=== PATIENT | female | born 1975 | race Caucasian/White ===

== ENCOUNTER 2017-08-08 16:23 | Inpatient (IN) | payer OTHER, MEDICAID ==
[~2017-08-08] VITALS: Ht 170.2 cm; Wt 100.1 kg
[2017-08-28] VITALS (12 sets, daily range): BP systolic 98–229; BP diastolic 53–87; PULSE 64–88; TEMP 94–98
[2017-08-28] MEDS ORDERED: LOPRESSOR 550 MG/TAB PO (06:10)
[2017-08-28] MEDS ORDERED: ATIVAN 1MG T1 MG/TAB PO (06:11)
[2017-08-28] MEDS ORDERED: OYSTER SHELL C500 MG PO (06:12)
[2017-08-28] MEDS ORDERED: VITAMIN C500 MG PO (06:52)
[2017-08-28] MEDS ORDERED: FOLIC ACID800 MCG PO (06:52)
[2017-08-28] MEDS ORDERED: FERROUS SU325 MG/TAB PO (06:53)
[2017-08-28] MEDS ORDERED: SYNTHROID0.05 MG/TA PO (06:54)
[2017-08-29] VITALS (7 sets, daily range): BP systolic 113–125; BP diastolic 67–82; PULSE 64–90; TEMP 97.4–98.5
[2017-08-29 06:45] LABS: HEMOGLOBIN 12.1 g/dl (12.5-16.0)
[2017-08-29 06:59] LABS: HEMATOCRIT 35.8 % (37.0-47.0)
[2017-08-30 00:37] VITALS: BP 108/68; PULSE 76; TEMP 98.8
[2017-08-30 03:36] VITALS: BP 116/78; PULSE 80; TEMP 98.1
[2017-08-30 06:31] LABS: HEMOGLOBIN 11.9 g/dl (12.5-16.0)
[2017-08-30 07:42] VITALS: BP 108/77; PULSE 83; TEMP 97.6
[2017-08-30 11:54] VITALS: BP 115/72; PULSE 80; TEMP 98
[2017-08-30] MEDS ORDERED: ASPI325T6 PO (15:07)
[2017-08-30 15:45] VITALS: BP 122/79; PULSE 91; TEMP 97.8
== END 2017-08-30 16:20 | disposition home or self-care (01) | DRG 468 ==
LOC: JCC 08-28 06:12 → EDBD 08-28 07:30 → JCC 08-28 07:30
PROVIDERS: Orthopaedic Surgery Sports Medicine
PROC: 0SPW0JZ Removal of Synthetic Substitute from Left Knee Joint, Tibial Surface, Open Approach (ICD-10-PCS; 2017-08-28)
PROC: 0SRD0J9 Replacement of Left Knee Joint with Synthetic Substitute, Cemented, Open Approach (ICD-10-PCS; principal; 2017-08-28 10:00)
DX: M17.12 Unilateral primary osteoarthritis, left knee (principal); E78.00 Pure hypercholesterolemia, unspecified
CPT/HCPCS: A9284; C1713; C1776; J0690; J1100; J1170; J1885; J2250; J2405; J2704; J2795; J7120

== ENCOUNTER → 2017-08-21 | Outpatient (CLI) | payer OTHER, MEDICAID | LOC: COL.LAB 09:58 | DX: Z01.812 Encounter for preprocedural laboratory examination (principal) ==